=== PATIENT | female | born 1955 | race Caucasian/White ===

== ENCOUNTER 2018-06-14 11:04 | Emergency (ER) | payer OTHER ==
[~2018-06-14] VITALS: Ht 157.5 cm; Wt 70.3 kg
[2018-06-14] MEDS ORDERED: UNOBMED (11:25)
--- NOTE | 2018-06-14 11:25 | NUR ---
ED Nurse Note: A/Ox4. ambulated in to ER due to right arm pain 10/10 s/p fall on the left side. Denies head injury. No trauma noted. Pt steph not take any blood thinner.
[2018-06-14] MEDS ORDERED: Methocarbamol 500mg tab ORAL ONE (12:15)
--- NOTE | 2018-06-14 12:31 | Emergency Room Report ---
History of Present Illness General Chief Complaint: Upper Extremity Injury Source: Patient Present Illness HPI 62-year-old female patient presents the ER complaining of right upper extremity injury status post slip and fall earlier today about 2 hours ago. Reports she was moving furniture when she slipped and fell and landed on her right arm, states pain with moving shoulder. Reports right hand dominant. Denies pain in wrist or elbow. 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 Reports that she hit her head on the right side when she fell and hit the ground. Denies loss of conscious. Denies vomiting or vision changes. Denies fever, chest pain , shortness of breath. Reports history of osteoarthritis. Denies taking blood thinner medication. Allergies: Coded Allergies: No Known Allergies (Unverified , 06/14/18) Patient History Past Medical History: see triage record Last Menstrual Period: 10 YEARS AGO Now: No Reviewed Nursing Documentation: PMH: Agreed; PSxH: Agreed Nursing Documentation-PMH Past Medical History: No History, Except For Hx Cardiac Problems: No - SPINAL SURGERY, SCOLIOSIS Review of Systems All Other Systems: negative except mentioned in HPI Physical Exam Vital Signs Date Time Temp Pulse Resp B/P (MAP) Pulse Ox O2 Delivery O2 Flow Rate FiO2 06/14/18 11:20 98.8 97 18 95 Room Air Sp02 EP Interpretation: reviewed, normal General Appearance: well appearing, no apparent distress, alert, GCS 15, non- toxic Head: normocephalic, atraumatic Eyes: bilateral eye normal inspection, bilateral eye PERRL ENT: hearing grossly normal, normal pharynx, no angioedema, normal voice, uvula midline, moist mucus membranes Neck: full range of motion Respiratory: lungs clear, normal breath sounds, no rhonchi, no respiratory distress, no accessory muscle use, no wheezing, speaking full sentences Cardiovascular #1: regular rate, rhythm, no edema Cardiovascular #2: 2+ radial (R), 2+ radial (L) Musculoskeletal: back normal, digits/nails normal, gait/station normal, normal range of motion - Right elbow and wrist, non-tender, decreased range of motion - Right shoulder, other - NVI, negative sulcus sign, negative skin tenting, AIN/ PIN/radial nerve intact, tender - Right shoulder, right elbow Neurologic: alert, oriented x3, responsive, motor strength/tone normal, sensory intact Psychiatric: mood/affect normal Skin: no rash Medical Decision Making PA Attestation Dr. Nieves is my supervising Physician whom patient management has been discussed with. Diagnostic Impression: Primary Impression: Fall from ground level ER Course Pt presents to ED c/o right Upper extremity pain s/p slip and fall, reports hit head on right side. DDX considered but are not limited to laceration, abrasion, contusion, cellulitis, ICH, skull fracture. Ordered CT of head to rule out acute pathology. Ordered xray to rule out fracture. Advised patient on RICE: rest, ice, compression, elevation. VITAL SIGNS are WNL, patient is afebrile Ordered CT head and pain medication. ED INTERVENTIONS: Provided patient with pain medication. PE negative for raccoon eyes, negative Steel sign, no hemotympanum, no skull depression. Cranial nerves intact as tested. CT head negative for acute disease. Patient eloped prior to CT and x-ray results. X-ray of cervical neck shows no acute fracture, spinal fusion hardware noted. X-ray of the right elbow and shoulder are negative for acute disease per the preliminary reading. - Please note that this Emergency Department Report was dictated using [employer] control technician technology software, occasionally this can lead to erroneous entry secondary to interpretation by the dictation equipment. Other X-Ray Diagnostic Results Other X-Ray Diagnostic Results #1: X-Ray ordered: Right shoulder # of Views/Limited Vs Complete: 3 View Indication: Pain EP Interpretation: Yes PA Xray: Interpretation reviewed, by supervising MD, and agrees with findings. Interpretation: no dislocation, no soft tissue swelling, no fractures Impression: No acute disease PA Scribe Text Chay Gaona PA-C Other X-Ray Diagnostic Results #2: X-Ray ordered: Cervical spine # of Views/Limited Vs Complete: 3 View Indication: Pain EP Interpretation: Yes PA Xray: Interpretation reviewed, by supervising MD, and agrees with findings. Interpretation: no dislocation, no soft tissue swelling, no fractures, other - Spinal fusion hardware Impression: No acute disease PA Scribe Text Chay Gaona PA-C Other X-Ray Diagnostic Results #3: X-Ray ordered: Right elbow # of Views/Limited Vs Complete: 3 View Indication: Pain EP Interpretation: Yes PA Xray: Interpretation reviewed, by supervising MD, and agrees with findings. Interpretation: no dislocation, no soft tissue swelling, no fractures Impression: No acute disease MELIA Scribenrique Text Chay Gaona PA-C CT/MRI/US Diagnostic Results CT/MRI/US Diagnostic Results : Imaging Test Ordered: CT head Impression negative for acute disease Last Vital Signs Date Time Temp Pulse Resp B/P (MAP) Pulse Ox O2 Delivery O2 Flow Rate FiO2 06/14/18 11:25 98.8 97 18 95 Room Air Disposition: ELOPED Condition: Unknown Nawaf Gaona Jun 14, 2018 12:31
--- NOTE | 2018-06-14 13:15 | NUR ---
ELOPEMENT: PT. AAOX4. AMBULATORY. LEFT WITH ALL HER BELONGINGS. PT. STATED THAT SHE WILL BE BACK AND GRAB SOMETHING FROM HER CAR. AFTER 30 MINUTES. PT. WAS CHECKED BACK FROM THE WAITING ROOM BUT THE PT. IS NOT THERE ANYMORE. PT. ELOPED WITH NO IV ACCESS IN.
--- NOTE | 2018-06-14 13:15 | Diagnostic Imaging Report ---
Indications: Head trauma, status post fall today, head pain Technique: Spiral acquisitions obtained through the brain. Angled axial and coronal 5 x 5 mm slices were reconstructed. Total dose length product 1382.05 mGycm. CTDI vol(s) 70.38 mGy. Dose reduction achieved using automated exposure control Comparison: None. Findings: No acute intracranial hemorrhage or edema. No mass effect nor midline shift. Normal diez-white differentiation. There is minimal age-related enlargement of the ventricles and extra axial CSF spaces. Impression: Minimal age-related volume loss. Negative for acute intracranial bleed or mass effect The CT scanner at [facility] is accredited by the [employer] and the scans are performed using protocols designed to limit radiation exposure to as low as reasonably achievable to attain images of sufficient resolution adequate for diagnostic evaluation.
--- NOTE | 2018-06-14 16:44 | Diagnostic Imaging Report ---
Indication: Right shoulder pain Technique: 3 views of the right shoulder Comparison: none Findings: No acute fractures. No dislocations. There are degenerative proliferative changes of the humeral head. There is elevation of the humeral head relative acromion, suggesting chronic rotator cuff injury. Bones are osteoporotic. Impression: No acute bony trauma Degenerative and other chronic changes as described
--- NOTE | 2018-06-14 16:45 | Diagnostic Imaging Report ---
Indications:Pain Technique: Three or 4 views of the right elbow Comparison: None Findings: No definite effusion. No acute fractures. No dislocations. There are mild degenerative proliferative changes of the radial head and coronoid process Impression: No acute bony trauma
--- NOTE | 2018-06-14 16:49 | Diagnostic Imaging Report ---
Indication: Neck pain Technique: 3 views of the cervical spine Comparison: none Findings: In the lower cervical spine, there is slight reversal of the normal cervical lordosis. There is extensive anterior fusion hardware involving C3, C4, C5, and posterior fusion hardware extending from C2 through C6. 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 No definite acute fractures, although evaluation for such is very limited due to the extensive postsurgical abnormality. No dislocations. The bones are osteoporotic. There is degenerative disc narrowing at C6-7 Impression: Limited exam, as described. No definite acute bony trauma Postsurgical changes, as described
== END 2018-06-14 13:15 | disposition left against medical advice (07) ==
LOC: EMR 12:33
DX: M25.521 Pain in right elbow (principal); M25.531 Pain in right wrist; R51 Headache; M54.2 Cervicalgia; W01.0XXA Fall on same level from slipping, tripping and stumbling without subsequent striking against object, initial encounter; Y92.89 Other specified places as the place of occurrence of the external cause
CPT/HCPCS: 70450; 72040; 99284

== ENCOUNTER 2018-10-15 13:48 | Emergency (ER) | payer OTHER ==
[~2018-10-15] VITALS: Ht 157.5 cm; Wt 70.3 kg
[~2018-10-15 13:48] MED LIST: UNOBMED
[2018-10-15 14:00] VITALS: BP 146/76
--- NOTE | 2018-10-15 14:14 | NUR ---
ED Nurse Note: pt walked in c/o headache and nausea since this morning, hx migraine, pt AA&ox4, gcs=15, skin warm and dry, resp even and unlabored on RA, -n/v/d, ambulates w/steady gait.
[2018-10-15] MEDS ORDERED: Ketorolac 30mg Inj IV ONE (14:30)
--- NOTE | 2018-10-15 14:41 | Emergency Room Report ---
History of Present Illness General Chief Complaint: Headache Source: Patient Present Illness HPI 63-year-old female presents to the emergency department complaining of 9 out of 10 in severity right-sided throbbing progressive onset migraine headache since yesterday. Patient reports that she has not been having any response to Slaughter which she is prescribed and usually relieves her symptoms. Patient states that her current symptoms are consistent with previous migraine headaches that she's had in the past she denies any change in character to these symptoms. She reports some nausea vomiting photophobia and visual disturbances. Patient denies hitting her head or having loss of consciousness she denies sudden onset of the headache she denies taking blood thinning medications. Denies CP, Palpitations, AMS, dizziness, or changes in sensation/paresthesias Allergies: Coded Allergies: No Known Allergies (Unverified , 06/14/18) Patient History Past Medical History: see triage record, migraines Past Surgical History: none Pertinent Family History: none Now: No Reviewed Nursing Documentation: PMH: Agreed; PSxH: Agreed Nursing Documentation-PMH Past Medical History: No History, Except For Hx Cardiac Problems: No - SPINAL SURGERY, SCOLIOSIS Review of Systems All Other Systems: negative except mentioned in HPI Physical Exam Vital Signs Date Time Temp Pulse Resp B/P (MAP) Pulse Ox O2 Delivery O2 Flow Rate FiO2 10/15/18 13:56 98.6 97 21 93 Room Air Sp02 EP Interpretation: reviewed, normal General Appearance: alert, GCS 15, non-toxic, mild distress Head: normocephalic, atraumatic Eyes: bilateral eye normal inspection, bilateral eye PERRL, bilateral eye EOMI , bilateral eye photophobia - mild ENT: hearing grossly normal, normal voice Neck: full range of motion, no meningismus, no bony tend Respiratory: chest non-tender, lungs clear, normal breath sounds, speaking full sentences Cardiovascular #1: regular rate, rhythm Gastrointestinal: normal bowel sounds, non tender, soft Genitourinary: normal inspection, no CVA tenderness Musculoskeletal: back normal, gait/station normal, normal range of motion, non- tender Neurologic: alert, oriented x3, responsive, motor strength/tone normal, sensory intact, normal gait, speech normal, grossly normal Psychiatric: judgement/insight normal Skin: normal color, no rash, warm/dry, well hydrated Lymphatic: no adenopathy Medical Decision Making PA Attestation Dr. Monge is my supervising Physician whom patient management has been discussed with. Diagnostic Impression: Primary Impression: Headache Qualified Codes: R51 - Headache ER Course 63-year-old female presents to the emergency department complaining of 9 out of 10 in severity right-sided throbbing progressive onset migraine headache since yesterday. Patient reports that she has not been having any response to Slaughter which she is prescribed and usually relieves her symptoms. Patient states that her current symptoms are consistent with previous migraine headaches that she's had in the past she denies any change in character to these symptoms. She reports some nausea vomiting photophobia and visual disturbances. Patient denies hitting her head or having loss of consciousness she denies sudden onset of the headache she denies taking blood thinning medications. Denies CP, Palpitations, AMS, dizziness, or changes in sensation/paresthesias Ddx considered but are not limited to migraine, SAH, Pseudomotor Cerebri, Mass lesion, Cluster MORRELL, Tension MORRELL, Post lumbar puncture MORRELL. Vital signs: are WNL, pt. is afebrile H&PE are most consistent with migraine headache ORDERS: - UA: unremarkable ED INTERVENTIONS: -NS IV Bolus 1000cc -Reglan PO -IV Toradol -Benadryl 25mg IV -Fioricet PO PT. reports symptoms have resolved. DISCHARGE: At this time pt. is stable for d/c to home. Will provide printed patient care instructions, and any necessary prescriptions. Care plan and follow up instructions have been discussed with the patient prior to discharge. Labs Test 10/15/18 14:55 Urine Color Pale yellow Urine Appearance Clear Urine pH 5 (4.5-8.0) Urine Specific [place] 1.010 (1.005-1.035) Urine Protein Negative (NEGATIVE) Urine Glucose (UA) Negative (NEGATIVE) Urine Ketones Negative (NEGATIVE) Urine Blood Negative (NEGATIVE) Urine Nitrite Negative (NEGATIVE) Urine Bilirubin Negative (NEGATIVE) Urine Urobilinogen Normal MG/DL (0.0-1.0) Urine Leukocyte Esterase 1+ (NEGATIVE) Urine RBC 0-2 /HPF (0 - 2) Urine WBC 2-4 /HPF (0 - 2) Urine Squamous Epithelial Cells Moderate /LPF (NONE/OCC) Urine Bacteria Few /HPF (NONE) Last Vital Signs Date Time Temp Pulse Resp B/P (MAP) Pulse Ox O2 Delivery O2 Flow Rate FiO2 5/10/19 13:56 98.6 97 21 93 Room Air Status: improved Disposition: HOME, SELF-CARE Condition: Stable Scripts Acetamin/Butalbital/Caffeine* (FIORICET*) 1 Ea Tab 1 TAB ORAL Q6H, #10 TAB 0 Refills Prov: Missy Negron 10/15/18 Patient Instructions: Migraine Headache Additional Instructions: Take medications as directed. Follow up with a Primary Care Provider in 3-5 days For a referral to have NEUROLOGIST Evaluation, even if your symptoms have resolved. --Please review list of primary care clinics, if you do not already have a primary care provider Return sooner to ED if new symptoms occur, or current symptoms become worse. - Please note that this Emergency Department Report was dictated using [employer] Energy[employer] and radio aircraft mechanic technology software, occasionally this can lead to erroneous entry secondary to interpretation by the dictation equipment. Missy Negron October 15, 2018 14:41
--- NOTE | 2018-10-15 15:00 | NUR ---
ED Nurse Note: urine specimen sent to lab.
[2018-10-15 15:06] LABS: APPEARANCE,URINE CLEAR; BILIRUBIN, URINE NEGATIVE (NEGATIVE); COLOR,URINE PALE YELLOW; GLUCOSE, URINE (UA) NEGATIVE (NEGATIVE); KETONES,URINE NEGATIVE (NEGATIVE); LEUKOCYTE ESTERASE ,URINE 1+ (NEGATIVE); NITRITE,URINE NEGATIVE (NEGATIVE); PH,URINE 5 (4.5-8.0); PROTEIN,URINE NEGATIVE (NEGATIVE); UROBILINOGEN,URINE NORMAL MG/DL (0.0-1.0)
[2018-10-15] MEDS ORDERED: DiphenhydrAMINE 50mg/ml Inj IVP ONE (16:15)
[2018-10-15] MEDS ORDERED: FIORICET1 EA ORAL (17:14)
[2018-10-15 17:19] VITALS: BP 133/70
--- NOTE | 2018-10-15 17:20 | NUR ---
ER DISCHARGE NOTE: Patient is cleared to be discharged per ERMD, pt is aox4, on room air, with stable vital signs. pt was given dc and prescription instructions, pt was able to verbalize understanding, pt id band and iv site removed without complications. pt is able to ambulate with steady gait. pt took all belongings.
== END 2018-10-15 17:19 | disposition home or self-care (01) ==
LOC: EMR 14:44
DX: R51 Headache (principal); R11.2 Nausea with vomiting, unspecified; M41.9 Scoliosis, unspecified
CPT/HCPCS: 81003; 96361; 96374; 96375; 99284; J1200; J1885